=== PATIENT | male | born 1955 | race Caucasian/White ===

== ENCOUNTER 2016-05-22 05:07 | Inpatient (IN) | payer OTHER ==
[~2016-05-22] VITALS: Ht 182.9 cm; Wt 90.7 kg
[~2016-05-22 05:07] MED LIST: AMLODIPINE BESY10 M1 PO; ASPIRIN EC81 M1 PO; CRESTOR40 M2 PO
--- NOTE | 2016-05-22 08:40 | Admission Core Measures ---
Admission Meds I reviewed the following Meds: Current Medications Sig/Lena Start time Last Medication Dose Stop Time Status Admin Acetaminophen 975 MG ONCE 05/22 0000 NR (Tylenol) 05/22 2358 Amlodipine Besylate 10 MG DAILY 05/22 1000 UNVr (Norvasc) Atorvastatin Calcium 80 MG 1700 05/22 170 UNVr (Lipitor) Cefazolin Sodium 2,000 MG ONCE 05/22 0000 NR (Kefzol-Ancef Inj) 05/22 2358 Oxycodone HCl 10 MG ONCE 05/22 0000 NR (Roxicodone) 05/22 235 Acute Coronary Syndrome Inclusion Criteria ACS Diagnosis No Inpatient Core Measures LDL Reminder: If No, please order W/I first 24hr of stay Congestive Heart Failure Inclusion Criteria CHF Diagnosis No Cerebrovascular accident Inclusion Criteria CVA/TIA Diagnosis No Inpatient Core Measures Bedside Swallow Eval Reminder: If BSE failed, place ST order Antithrombotic Reminder: Order Antithrombotic Medication by end of day 2 Antithrombotic Reminder: Document Reason Antithrombotic Not ordered by end of day 2 AFIB/Flutter Reminder: If Present, add to problem list AFIB/Flutter Reminder: Order Anticoag Medication for pts with AFIB/Flutter Atherosclerosis Reminder: If Present, add to problem list LDL Reminder: If No, please order W/I first 24hr of stay PT Order Reminder: If No, please order Venous thromboembolism Inpatient Core Measures VTE Risk Factors: Age > 40, Surgery VTE Prophylaxis Ordered Inpt Mech & Pharm No Mech VTE prophylaxis d/t No contraindications No VTE Pharm Prophylaxis d/t No contraindications Inclusion Criteria - Per Current guidelines, there needs to be overlap - treatment for the first 5 days of Warfarin therapy. - Parenteral Anticoagulation (IV or SC) needs to be - given along with Warfarin therapy. VTE Diagnosis No VTE Type NONE VTE Confirmed by (Test) NONE Problem List As ranked by this Provider includes Assessment & Plan 1. Status post total hip replacement, right HOME MEDS Home Med List Amlodipine Besylate 10 MG TABLET 1 TAB PO DAILY HTN (Reported) Aspirin (Ecotrin*) 81 MG TABLET.DR 1 TAB PO DAILY PROPHO (Reported) Rosuvastatin Calcium (Crestor) 40 MG TABLET 1 TAB PO DAILY CHOLESTEROL ( Reported)
--- NOTE | 2016-05-22 08:42 | Patient Discharge Instructions ---
Discharge Instructions General Discharge Information You were seen/treated for: Right hip pain You had these procedures: 05/22/2016 right total hip revision Watch for these problems: Redness, swelling, fever, signs of infection. Uncontrolled pain, Excessive bleeding. Decreased range of motion or unable to bear weight. Chest pain, shortness of breath. Call Surgeon to remove: Stitches Do not soak the wound: Yes No bath, but you may shower: Yes Other wound care: Daily dry dressing changes Diet Continue normal diet: Yes Activity Activity Self Limited: Yes Activity Limited to: Weight bear as tolerated Additional ACTIVITY Info: Daily physical therapy Acute Coronary Syndrome Inclusion Criteria At DC or during hospital stay patient has or had the following: ACS DIAGNOSIS No Discharge Core Measures Meds if any: Prescribed or Continued at Discharge Meds if any: NOT Prescribed or Continued at Discharge Congestive Heart Failure Inclusion Criteria At DC or during hospital stay patient has or had the following: CHF DIAGNOSIS No Discharge Core Measures Meds if any: Prescribed or Continued at Discharge Meds if any: NOT Prescribed or Continued at Discharge Cerebrovascular accident Inclusion Criteria At DC or during hospital stay patient has or had the following: CVA/TIA Diagnosis No Discharge Core Measures Meds if any: Prescribed or Continued at Discharge Meds if any: NOT Prescribed or Continued at Discharge Venous thromboembolism Inclusion Criteria VTE Diagnosis No VTE Type NONE VTE Confirmed by (Test) NONE Discharge Core Measures - Per Current guidelines, there needs to be overlap - treatment for the first 5 days of Warfarin therapy. - If discharged on Warfarin prior to 5 days of - overlap therapy, the patient will need to be - assessed for post discharge needs including - *Post discharge parental anticoagulation - *Warfarin and/or parental anticoagulation education - *Follow up date to check INR post discharge At least 5 days overlap therapy as Inpatient No Meds if any: Prescribed or Continued at Discharge Note: Overlap Therapy is Warfarin and Anticoagulant Meds if any: NOT Prescribed or Continued at Discharge
[2016-05-22] MEDS ORDERED: COLACE100 M1 PO (08:44)
[2016-05-22] MEDS ORDERED: MORPHINE SULFAT15 M3 PO (08:44)
[2016-05-22] MEDS ORDERED: MIRALAX17 G1 PO (08:44)
[2016-05-22] MEDS ORDERED: ASPIRIN325 M2 PO (08:44)
[2016-05-22] MEDS ORDERED: DILAUDID2 M1 PO ×2 (08:44→13:26)
--- NOTE | 2016-05-22 08:46 | Surg Short-stay <48hrs Dis Sum ---
Visit Information Visit Dates Admission Date: 05/22/16 Discharge Date: 05/22/16 Surgical Short Stay DC Summary Admission Diagnosis: RIGHT HIP PAIN Final Diagnosis: SAME Procedure(s): 05/22/16 RIGHT TOTAL HIP ARTHROPLASTY REVISION Summary/Significant Findings: Patient admitted to floor following procedure below. Patient ambulated with PT upon arrival to the floor. Patient continued to progress well. Upon discharge patient is afebrile, tolerating diet, pain controlled, ambulating well with rolling walker and PT. Condition at Discharge: Good Discharge Disposition: home health services Discharge instructions provided to patient/family: Yes Post discharge follow-up plan: Call office to schedule/confirm appointment.
[2016-05-22] MEDS ORDERED: INDOMETHACIN75 M1 PO (10:17)
[2016-05-22] MEDS ORDERED: DILAUDID4 M1 PO (10:17)
--- NOTE | 2016-05-22 11:43 | RADIOLOGY REPORT ---
EXAMINATION: XR HIP, RIGHT CLINICAL INFORMATION: Right hip arthroplasty COMPARISON: None TECHNIQUE: AP and crosstable lateral views of the right hip were obtained. FINDINGS: The femoral head prosthesis is well centered within the acetabular cup which has lateral version and anteversion of approximately 35 degrees. The tip of the femoral stem is positioned within the proximal femoral diaphysis and there is no acute periprosthetic fracture. Postoperative soft tissue gas is present lateral to the hip. IMPRESSION: The noncemented components of the right total hip arthroplasty appear to be in satisfactory position.
[2016-05-22 12:13] VITALS: BP 122/76
--- NOTE | 2016-05-22 13:31 | PN- Orthopedic ---
Subjective Subjective: Post Op Note Patient without c/o. No pain at the moment. Denies numbness/tingling in RLE. Denies n/v. OOB and ambulating in hallways without issues. Denies CP/SOB. Patient stating that he wants to go home today. He does not want to be discharged with MS leona. Wants 2mg PO dilaudid, not 4mg. Objective Vital Signs and I&Os Vital Signs Date Time Temp Pulse Resp B/P Pulse O2 O2 Flow FiO2 Ox Delivery Rate 05/22 1213 80 18 122/76 96 Room Air Physical Exam General Appearance: well developed/nourished, no apparent distress, alert, awake , comfortable Head: atraumatic, normal appearance Respiratory: normal breath sounds, no respiratory distress Cardiovascular: regular rate/rhythm Abdomen: soft, non-tender Extremities: Right hip dressing c/d/i. Right thigh soft, no swelling. No calve TTP/Swelling. N/V intact BLE. Current Medications: Current Medications Sig/Lena Start time Last Medication Dose Route Stop Time Status Admin Acetaminophen 650 MG Q4P PRN 05/22 1200 AC PO Acetaminophen 975 MG ONCE 05/22 0000 DC PO 05/22 2359 Amlodipine Besylate 10 MG DAILY 05/22 1000 AC PO Aspirin 325 MG BID 05/22 1000 AC PO Atorvastatin Calcium 80 MG 1700 05/22 1700 AC PO Cefazolin Sodium 2 GM IQ8 05/22 1600 AC N/A 1 UNIT IV 05/23 0029 Cefazolin Sodium 2,000 MG ONCE 05/22 0000 DC IV 05/22 2359 Docusate Sodium 100 MG DAILY NEEDED 05/22 1200 AC PO Hydromorphone HCl 2 MG Q4P PRN 05/22 1200 AC PO Hydromorphone HCl 4 MG Q4P PRN 05/22 1200 AC PO Hydromorphone HCl 1 MG Q3P PRN 05/22 1200 AC IV Ketorolac 30 MG Q6P PRN 05/22 1200 AC Tromethamine IM 05/25 1157 Ondansetron HCl 4 MG Q6P PRN 05/22 1200 AC IV Oxycodone HCl 10 MG .STK-MED ONE 05/22 0729 DC PO 05/22 0730 Oxycodone HCl 10 MG ONCE 05/22 0000 DC PO 05/22 2359 Patient Medication 1 UNIT 1700 05/22 1700 AC Teaching ED 05/22 1701 Patient Medication 1 UNIT ONE NR 05/22 0845 [facility] ED 05/22 1445 Polyethylene Glycol 17 GM DAILY NEEDED PRN 05/22 1200 PO Sodium Chloride 1,000 ML .[id number] 05/22 1200 AC IV Assessment/Plan Assessment/Plan 61yo M POD#0 s/p right hip revision, removal of bone spur. AVSS, patient doing well. - Pain control - DC IVF - OOB and ambulate as desired - reg diet - home Rx changed - I/O's - dc home if cleared by PT Core Measures/Miscellaneous Venous Thromboembolism VTE Risk Factors: Age > 40, Surgery VTE Contraindications: No Contraindications VTE Prophylaxis Ordered Inpt: Mech & Pharm VTE Diagnosis: No VTE Type: NONE VTE Confirmed by (Test): NONE Beta Kenan Is Beta Kenan a Home Med? No Antibiotics Is Patient on Antibiotics? Yes If Yes: prophylaxis
--- NOTE | 2016-05-22 16:05 | Operative Report ---
Operative/Inv Procedure Report Surgery Date: 05/22/16 Name of Procedure: Right hip arthrotomy and heterotopic ossification resection Pre-Operative Diagnosis: Right hip pain secondary to impingement Post-Operative Diagnosis: Same Estimated Blood Loss: 200 Surgeon/Jboss Developer: ANA LILIA LOPEZ,BRIGID Craft Anesthesia: general endotracheal tube Operative/Procedure Note Note: Description of procedure: The patient was taken to the operating room and positively identified. After induction of general anesthesia and administration of appropriate preoperative antibiotics he was positioned supine on the OR table and all bony prominences well-padded. Right lower stem was then prepped and draped in usual sterile fashion. A direct anterior approach was made to the right hip. This was carried down through skin and subcutaneous tissue to the level of the fascia. Meticulous hemostasis was maintained with Bovie cautery. The fascia over the tensor fascia maricruz muscle was opened sharply, taking care to stay lateral to the lateral femoral cutaneous nerve, and the interval between the TFL and sartorius was entered bluntly. Retractors were placed around the femoral neck. The ascending branches of the lateral femoral circumflex vessels were carefully coagulated. A large bony prominence immediately anterior to the intertrochanteric line was immediately palpable. Soft tissue overlying this osteophyte was removed. The hip capsule was not opened or entered. Utilizing an osteotome the osteophyte was removed at its base. The edges were smoothed with the use of a rongeur. Bone wax was placed into the resection site to tamponade some bleeding. The wound was then irrigated extensively. The soft tissues were infiltrated with Marcaine. The wound was then closed in layers. A sterile dressing was applied the patient was awakened and taken to the recovery room in satisfactory condition.
== END 2016-05-22 14:05 | disposition home health service (06) | DRG 499 ==
LOC: ENRESERVDT → ENRESERVTM → SDA 05:07 → 2NA 11:45
PROVIDERS: ADMIT Orthopaedic Surgery
PROC: 0QB60ZZ Excision of Right Upper Femur, Open Approach (ICD-10-PCS; principal; 2016-05-22)
DX: M25.851 Other specified joint disorders, right hip (principal); I10 Essential (primary) hypertension; M25.751 Osteophyte, right hip; E78.00 Pure hypercholesterolemia, unspecified; M19.049 Primary osteoarthritis, unspecified hand; Z87.891 Personal history of nicotine dependence
CPT/HCPCS: 2NAP; 73502-RT; 88304; 97116-GO; 97161-GP; 97530-GO; J0690; J0735; J1170; J1885; J2405